=== PATIENT | female | born 1950 ===

== ENCOUNTER 2019-02-13 13:30 | Inpatient (IN) | payer OTHER ==
[~2019-02-13] VITALS: Ht 162.6 cm; Wt 76.7 kg
[2019-02-13] MEDS ORDERED: ULTRAM50 MG PO (17:19)
[2019-02-13] MEDS ORDERED: NORVASC5 MG PO (17:19)
[2019-02-13] MEDS ORDERED: PROTONIX40 MG PO (17:19)
[2019-02-13] MEDS ORDERED: CATAPRES0.1 MG PO (17:19)
[2019-02-13] MEDS ORDERED: SYNTHROID88 MCG PO (17:20)
[2019-02-13] MEDS ORDERED: AMBIEN10 MG PO (17:20)
== END 2019-02-26 17:13 | disposition home or self-care (01) | DRG 331 ==
LOC: EDSTATUS 13:30 → ADM 13:30 → RECOVERY 02-22 07:00 → O/R 02-22 09:15 → SURH 02-22 09:15 → RECOVERY 02-22 13:30 → SURH 02-22 21:14
PROVIDERS: ADMIT Colon & Rectal Surgery
PROC: 07TB4ZZ Resection of Mesenteric Lymphatic, Percutaneous Endoscopic Approach (ICD-10-PCS; 2019-02-22)
PROC: 0DTM4ZZ Resection of Descending Colon, Percutaneous Endoscopic Approach (ICD-10-PCS; principal; 2019-02-22 07:00)
DX: C18.6 Malignant neoplasm of descending colon (principal); R59.0 Localized enlarged lymph nodes; I11.9 Hypertensive heart disease without heart failure; E03.8 Other specified hypothyroidism

== ENCOUNTER 2019-02-15 07:24 | Day surgery (SDC) | payer OTHER ==
[~2019-02-15 07:24] MED LIST: AMBIEN10 MG PO; CATAPRES0.1 MG PO; NORVASC5 MG PO; PROTONIX40 MG PO; SYNTHROID88 MCG PO; ULTRAM50 MG PO
== END 2019-02-15 14:15 | disposition home or self-care (01) ==
LOC: AMB-ENDOS 07:24
DX: K62.0 Anal polyp (principal); K64.8 Other hemorrhoids